=== PATIENT | male | born 1995 | race Hispanic/Latino ===

== ENCOUNTER 2019-06-12 00:07 | Emergency (ER) | payer SELFPAY ==
[~2019-06-12] VITALS: Ht 182.9 cm; Wt 127.0 kg
[2019-06-12 03:13] VITALS: BP 125/86
== END 2019-06-12 01:18 | disposition home or self-care (01) ==
LOC: ER 00:07
DX: A60.1 Herpesviral infection of perianal skin and rectum (principal)
CPT/HCPCS: 99282

== ENCOUNTER → 2019-06-22 | Day surgery (SDC) | payer OTHER ==
[~2019-06-22] MED LIST: GLUCAGON FOR INJ 1 MG VIAL ONE; HYOSCYAMINE 0.125 MG TAB ONE; PROPOFOL IV EMULSION 10 MG/ML 50 ML VIAL ONE
[2019-06-22 14:45] VITALS: BP 132/85
--- NOTE | 2019-06-22 16:05 | Operative Report ---
DATE OF PROCEDURE: 06/22/2019 SURGEON: Rehan Gaytan MD PROCEDURE: Colonoscopy with biopsies. INDICATIONS FOR COLONOSCOPY: History of intermittent diarrhea, bright red blood per rectum. MEDICATIONS: The patient was done under MAC, please see anesthesiologist's note. PROCEDURE IN DETAIL: With the patient in left lateral decubitus position, the flexible fiberoptic Olympus colonoscope was inserted into the rectum with ease and advanced all the way to the cecum. Mucosa overlying the cecum appeared to be within normal limits. The ileocecal valve was intubated and the scope was advanced into the terminal ileum. Biopsies were obtained. The scope was then withdrawn back into the colon. It was then withdrawn slowly, mucosa overlying the ascending colon, transverse colon grossly appeared to be within normal limits. Mild patchy inflammatory changes were noted in the left colon, multiple random biopsies were obtained. Similar findings were noted in the rectum also. Biopsies were obtained. The scope was then retroflexed into the distal rectum and small internal hemorrhoids were noted, none of which was actively bleeding. The scope was then straightened out, it was subsequently withdrawn after securing an adequate stool specimen that was sent for the appropriate stool studies. A large condyloma was noted in the perianal area that was not actively bleeding. The patient tolerated the procedure well. IMPRESSION: 1. Mild patchy left-sided colitis. 2. Proctitis, mild. 3. Large condyloma perianal area. PLAN: Follow up histology. Followup stool studies. We will refer to Dr. Tip Weiner for excision of the condyloma. Rehan Gaytan MD [facility] [place] [place] /[id number] cc: MD Tristan Garcia MD
[2019-06-22 16:44] LABS: WBC,FECAL (FECAL LACTOFERRIN) NEGATIVE (NEGATIVE)
[2019-06-23 13:49] LABS: C DIFFICILE TOXIN A&B AMP PROB NEGATIVE (NEGATIVE)
== END | disposition home or self-care (01) ==
LOC: OR 10:33
PROVIDERS: ATTEND Internal Medicine Gastroenterology
DX: K62.89 Other specified diseases of anus and rectum (principal); K51.50 Left sided colitis without complications; A63.0 Anogenital (venereal) warts; K64.8 Other hemorrhoids; K59.09 Other constipation; G47.33 Obstructive sleep apnea (adult) (pediatric); R03.0 Elevated blood-pressure reading, without diagnosis of hypertension; E66.9 Obesity, unspecified; Z72.0 Tobacco use; Z68.37 Body mass index [BMI] 37.0-37.9, adult
CPT/HCPCS: 45380; 83630; 83993; 87045; 87177; 87328; 87493; J1610; J2704; 45378

== ENCOUNTER → 2019-07-14 | Day surgery (SDC) | payer OTHER ==
[2019-07-11 13:36] LABS: BASOPHILS # (AUTO) 0.1 (0.0-0.1); BASOPHILS % 0.7 % (0.0-1.0); EOSINOPHILS # (AUTO) 0.1 (0.0-0.4); HEMATOCRIT 42.9 % (38.2-49.6); HEMOGLOBIN 14.1 g/dL (14.0-18.0); LYMPHOCYTES # (AUTO) 3.4 (1.0-3.2); LYMPHOCYTES % 34.6 % (18.0-39.1); MEAN CORPUSCULAR HEMOGLOBIN 26.4 pg (28-32); MEAN CORPUSCULAR HGB CONC 32.9 g/dL (31-35); MEAN CORPUSCULAR VOLUME 80.2 fL (81-99); MONOCYTES # (AUTO) 0.5 (0.2-0.8); NEUTROPHILS # (AUTO) 5.8 (2.1-6.9); NEUTROPHILS % 58.3 % (38.7-80.0); PLATELET COUNT 385 x10e3/uL (140-360); RED BLOOD COUNT 5.35 x10e6/uL (4.3-5.7); RED CELL DISTRIBUTION WIDTH 13.2 % (11.7-14.4)
[~2019-07-14] MED LIST changes: +ACETAMINOPHEN 1000 MG/100 ML 100 ML IV ONE; +BUPIVACAINE 0.25%/EPI 30ML SDV INJ ONE; +DEXAMETHASONE SOD PHOS INJ 4 MG/ML VIAL ONE; +FENTANYL CITRATE/PF 100MCG/2 ML INJ ONE; -GLUCAGON FOR INJ 1 MG VIAL ONE; -HYOSCYAMINE 0.125 MG TAB ONE; +LIDOCAINE HCL 1% 30ML-PF VIAL ONE; +LIDOCAINE HCL 2% 30 ML TUBE ONE; +LIDOCAINE HCL 2% LOCAL INJ 5 ML SDV VIAL INJ ONE; +MIDAZOLAM HCL 2 MG/2 ML VIAL ONE; +NEOSTIGMINE 1 MG/ML 10ML VIAL ONE; +ONDANSETRON HCL INJ 2MG/ML 2ML 2 MG/ML VIAL ONE; +PROPOFOL IV EMULSION 10 MG/ML 20 ML VIAL ONE; -PROPOFOL IV EMULSION 10 MG/ML 50 ML VIAL ONE; +SEVOFLURANE INHAL SOLN 250 ML PEN BTL ONE
[2019-07-14 11:10] VITALS: BP 123/76
--- NOTE | 2019-07-14 12:11 | Operative Report ---
DATE OF PROCEDURE: 07/14/2019 SURGEON: Tip Weiner MD PREOPERATIVE DIAGNOSIS: Multiple perianal condylomas. POSTOPERATIVE DIAGNOSIS: Multiple perianal condylomas. OPERATION PERFORMED: Resection and fulguration of multiple perianal condylomas. ANESTHESIA: General. COMPLICATIONS: None. ESTIMATED BLOOD LOSS: Minimal. DESCRIPTION OF PROCEDURE: With the patient lying in bed in the lithotomy position under good general anesthesia, the perineum was prepped with Betadine solution and draped in the usual manner. The patient had two large pedunculated condylomas at the 1 and 2 o'clock position and also a smaller flat condyloma at the 6 o'clock position. All areas were infiltrated with 0.25% Marcaine with epinephrine. The two large condylomas were then surgically resected and the base was then cauterized. The condyloma at the 6 o'clock position was fulgurated and there were no other lesions present. Neosporin was applied. A dressing was placed. Sponge, lap, and needle count was correct. The patient tolerated the procedure well and returned to the recovery room in stable condition. MD TRINIDAD Garcia/[facility] /[id number]
== END | disposition home or self-care (01) ==
LOC: OR 06:34
PROVIDERS: ATTEND Surgery
DX: A63.0 Anogenital (venereal) warts (principal); Z01.812 Encounter for preprocedural laboratory examination; F41.9 Anxiety disorder, unspecified; F32.9 Major depressive disorder, single episode, unspecified; Z87.891 Personal history of nicotine dependence
CPT/HCPCS: 36415; 85025; 88304; J1100; J2001; J2250; J2405; J2710; J3010